=== PATIENT | male | born 1940 | race Caucasian/White ===

== ENCOUNTER 2016-10-08 22:37 | Emergency (ER) | payer OTHER, BC ==
[~2016-10-08] VITALS: Ht 195.6 cm; Wt 132.8 kg
[~2016-10-08 22:37] MED LIST: ATIVAN1 M1 PO; BYSTOLIC5 MG PO; LASIX20 MG PO; LISINOPRIL PO; NORVASC5 M1 PO; ZANTAC150 M1 PO
[2016-10-08 23:57] LABS: HEMATOCRIT 42.6 % (38.0-50.0); MCH 28.7 PG (29.0-34.0); MCHC 32.6 G/DL (30.0-36.0); MCV 87.8 FL (86-99); MEAN PLAT.VOLUME 9.4 uM^3 (9.0-12.4); PLATELET COUNT 243 K/uL (156-360); RBC DIS.WIDTH-CV 13.7 % (11.8-14.6); RBC DIS.WIDTH-SD 44.2 % (39-53); RED BLOOD COUNT 4.85 M/uL (4.00-5.50); WHITE BLOOD COUNT 6.5 K/uL (4.1-10.2)
[2016-10-09 00:06] LABS: CHLORIDE 102 mEq/L (99-109); POTASSIUM 3.7 mEq/L (3.7-5.4); SODIUM 140 mEq/L (136-147)
[2016-10-09 00:08] LABS: GLUCOSE 104 mg/dL (70-99)
[2016-10-09 00:09] LABS: D-DIMER ELISA 0.65 mg/L FEU (< 0.57)
[2016-10-09 00:10] LABS: ANION GAP 10 MEQ/L (2-14)
[2016-10-09 00:12] LABS: GFR ESTIMATE (CALCULATED) > 59 mL/min/
[2016-10-09 00:13] LABS: UREA NITROGEN (BUN) 17 mg/dL (9-23)
[2016-10-09 01:14] LABS: ADD MIUA? NO; BILIRUBIN NEGATIVE; BLOOD NEGATIVE; COLOR YELLOW ((YELLOW)); GLUCOSE (STRIP) NEGATIVE; KETONES NEGATIVE; LEUKOCYTES NEGATIVE; NITRITE NEGATIVE; PROTEIN (STRIP) NEGATIVE; SPECIFIC GRAVITY 1.015 (1.000-1.030); UROBILINOGEN 0.2 MG/DL (0.2-1.0)
[2016-10-09 01:52] VITALS: BP 176/87
== END 2016-10-09 01:54 | disposition home or self-care (01) ==
LOC: EME 22:37
PROVIDERS: Physician Assistant
DX: I10 Essential (primary) hypertension (principal); R51 Headache; R06.00 Dyspnea, unspecified; Z91.81 History of falling; Z96.653 Presence of artificial knee joint, bilateral; Z87.891 Personal history of nicotine dependence
CPT/HCPCS: 70450; 71020; 71275; 80048; 81003; 83880; 85027; 85379; 99281; 99284; J7030

== ENCOUNTER 2017-11-05 07:46 | Emergency (ER) | payer OTHER, BC ==
[~2017-11-05] VITALS: Ht 195.6 cm; Wt 120.6 kg
[2017-11-05] MEDS ORDERED: FLEXERIL10 MG PO (11:51)
[2017-11-05] MEDS ORDERED: TYLENOL WITH C1 EACH PO (11:51)
[2017-11-05 12:16] VITALS: BP 150/76
== END 2017-11-05 12:24 | disposition home or self-care (01) ==
LOC: EME 07:46
DX: S16.1XXA Strain of muscle, fascia and tendon at neck level, initial encounter (principal); I10 Essential (primary) hypertension; Z87.891 Personal history of nicotine dependence; Z96.653 Presence of artificial knee joint, bilateral
CPT/HCPCS: 72040; 99281; 99284; J1885; J2060